=== PATIENT | male | born 1990 ===

== ENCOUNTER 2023-08-11 17:06 | Emergency (ER) | payer OTHER, SELFPAY ==
[2023-08-11 17:07] VITALS: BP 129/84; PULSE 99; RESP 18; TEMP 36.6; O2SAT 99
--- NOTE | 2023-08-11 18:31 | PC.NURSE ---
patient left ED without difficulty and in no distress.
== END 2023-08-11 18:31 | disposition left against medical advice (07) ==
LOC: ANHED 18:43
DX: K08.89 Other specified disorders of teeth and supporting structures (principal)
CPT/HCPCS: 99199

== ENCOUNTER 2024-06-14 04:00 | Emergency (ER) | payer SELFPAY ==
[2024-06-14 04:01] VITALS: BP 97/63; PULSE 120; RESP 15; TEMP 36.7; O2SAT 99
[2024-06-14 04:22] VITALS: BP 97/53; PULSE 77; RESP 16; TEMP 36.6; O2SAT 99
--- NOTE | 2024-06-14 05:28 | ED_ITS ---
HPI - Alcohol General Chief Complaint: Alcohol Stated Complaint: PASSED OUT IN BACK OF [employer]BER CAR, ETOH+ Time Seen by Provider: 06/14/24 04:00 Source: patient and EMS Mode of arrival: EMS Limitations: no limitations History of Present Illness HPI narrative: This is a 34-year-old male, who denies past medical history, brought in by EMS after being called by an [employer] hook up driver stating that the patient was passed out in the back seat. Reportedly the patient was not able to wake and exit the vehicle on arriving to their home. EMS reports on arrival the patient woke to sternal rub. The patient has no complaints and states he had several drinks this evening. He denies drug use. He has no other complaints at this time. Related Data Allergies Allergy/AdvReac Type Severity Reaction Status Date / Time No Known Allergies Allergy Verified 08/11/23 17:09 Review of Systems Review of Systems: All systems reviewed & are unremarkable except as noted in HPI and below PMFSH Past Medical History Medical History No significant past medical history Surgical History Surgical History No significant past surgical history Social History Social History Smoking status: Never smoker Alcohol intake: current Substance use: never Exam Narrative: GENERAL: Well-developed, well-nourished, and in no acute distress. Smells of alcohol HEAD: Normocephalic, atraumatic. EYES: PERRLA and EOMI. CHEST: Clear to auscultation. No respiratory distress. No wheezes rales or rhonchi HEART: Regular rate and rhythm. No murmur heard. Normal peripheral pulses. ABDOMEN: Soft, nontender, nondistended, normal active bowel sounds. EXTREMITIES: Normal range of motion. No edema. SKIN: Warm, dry, no rash. NEURO: Alert and oriented x4. No focal deficit. Moving all 4 limbs spontaneously PSYCH: Normal mood and affect. Course Course Emergency Course: 06:35 - On re-evaluation, the patient wakes easily to voice. Will discharge. I advised the patient to take caution with alcohol use. Discussed return and emergency precautions including signs/symptoms of ACS respiratory distress. The patient voiced understanding and agreement with the plan. All questions answered to his satisfaction. Vital Signs Vital signs: Vital Signs Temperature 98.1 F 06/14/24 04:01 Pulse Rate 120 H 06/14/24 04:01 Respiratory Rate 15 06/14/24 04:01 Blood Pressure 97/63 L 06/14/24 04:01 Pulse Oximetry 99 06/14/24 04:01 Oxygen Delivery Room Air 06/14/24 04:01 Temperature 98 F 06/14/24 04:22 Pulse Rate 77 06/14/24 04:22 Respiratory Rate 16 06/14/24 04:22 Blood Pressure 97/53 L 06/14/24 04:22 Pulse Oximetry 99 06/14/24 04:22 Oxygen Delivery Room Air 06/14/24 04:01 MDM - Alcohol MDM Narrative Medical decision making narrative: Plan: Observation, primary care follow-up Differential Diagnosis Differential diagnosis: Likely alcohol intoxication and other (Drug intoxication, other) Discharge Plan Discharge Clinical Impression: Alcoholic intoxication Qualifiers: Complication of substance-induced condition: uncomplicated Qualified Code(s): F10.920 - Alcohol use, unspecified with intoxication, uncomplicated Patient Disposition: Home, Self-Care Condition: Stable Instructions: Antibiotic Form, Alcohol Intoxication (ED) Additional Instructions: You were seen in the emergency department. Your exam and vital signs are reassuring I recommend caution with future alcohol use in avoiding drug use. If you develop chest pain, shortness of breath, loss of consciousness, or if you have other emergent concerns for life, limb, or eyesight, return to the emergency department. Patient Language: French Follow-up/Referrals: PHYSICIAN,INSURANCE FOLLOW UP SPECIALIST [Primary Care Provider] - Garfield Acosta MD [Physician] - 2 Weeks Time of Disposition: 05:31
[2024-06-14 06:25] VITALS: BP 106/60; PULSE 82; RESP 16; TEMP 36.6; O2SAT 100
== END 2024-06-14 06:43 | disposition home or self-care (01) ==
PROVIDERS: Emergency Provider Preventive Medicine Aerospace Medicine
DX: F10.129 Alcohol abuse with intoxication, unspecified (principal); Y90.9 Presence of alcohol in blood, level not specified
CPT/HCPCS: 99283